=== PATIENT | male | born 2000 | race Caucasian/White ===

== ENCOUNTER 2024-10-04 12:50 | Emergency (ER) | payer OTHER, MEDICAID ==
[~2024-10-04] VITALS: Ht 188 cm; Wt 88.5 kg
[2024-10-04 12:58] VITALS: TEMP 97.2
--- NOTE | 2024-10-04 14:16 | Physician Documentation ---
History of Present Illness ~ Chief Complaint: See Chief Complaint Stated Complaint: DOG SCRATCH MED REQUEST Time Seen by MD: 14:00 Primary Medical Doctor: NONE HPI Patient is seen today with complaints of a small scratch on his right forearm from a stray dog and patient is concerned about rabies. Patient denies any symptoms denies any fevers or chills or infection and has no other concern or complaint at this time. Tetanus within 5 years: Yes Medication Reconciliation Allergies: Coded Allergies: No Known Allergies (Unverified , 10/04/24) Review of Systems Constitutional: Denies: chills, fever, weakness Eyes: Denies: pain, blurred vision ENT: Denies: ear pain, nose pain, throat pain, mouth pain Respiratory: Denies: cough, shortness of breath Cardiovascular: Denies: chest pain, palpitations Gastrointestinal: Denies: abdominal pain, nausea, vomiting Genitourinary: Denies: burning, dysuria Male Genitalia: Denies: penile discharge, testicular pain Neurological: Denies: headache, dizziness Musculoskeletal: Denies: pain, swelling Integumentary: Denies: rash, lesions Allergic/Immunologic: Denies: hives, itching Hematologic/Lymphatic: Denies: no symptoms reported Psychiatric: Denies: depression, anxiety Physical Exam Vital Signs: Temperature: 97.2, Source: Oral, Heart Rate: 82, Respiratory Rate: 16, BP: 120/77, Pulse Oximetry: 100, Weight: 88.500 Oxygen Flow Rate: 0 Physical Exam General: Awake and Alert, no acute distress. HEENT: Conjunctiva pink, Sclera clear, Mucus Membranes moist. Neck: Supple without masses and tenderness. Resp: Unlabored. Lungs clear to auscultation bilaterally. Heart: Regular Rate and rhythm, normal S1 and S2 without murmur, rub or gallop. Musculoskeletal: Patient on exam does have a very small and very superficial scratch on the volar aspect of his right forearm measuring approximately 3 cm in length and does not break through the dermis. In his extremely superficial. No sign of surrounding erythema or induration or secondary infection at this time. Extremities: No cyanosis,clubbing or edema. Skin: Warm and Dry. Progress Results/Orders Results/Orders Vital Signs 10/04/24 12:58 Temp 97.2 Pulse 82 Resp 16 B/P (MAP) 120/77 Pulse Ox 100 O2 Flow Rate 0 Medical Decision Making Findings Patient is seen today with complaints of a small scratch on his right forearm from a stray dog and patient is concerned about rabies. Patient denies any symptoms denies any fevers or chills or infection and has no other concern or complaint at this time. Patient was given reassurance that risk of transmission of rabies from a dog scratch that is extremely superficial such as this is extremely low. Patient will continue to monitor symptoms and will follow up with primary care in 3-5 days or sooner as needed. Return to ED with any worsening, concerning or changing symptoms. Departure Disposition: 01 HOME / SELF CARE / HOMELESS Impression: Primary Impression: Dog scratch Additional Impression: Abrasion forearm Condition: Stable Additional Instructions: Patient was given reassurance that risk of transmission of rabies from a dog scratch that is extremely superficial such as this is extremely low. Patient will continue to monitor symptoms and will follow up with primary care in 3-5 days or sooner as needed. Return to ED with any worsening, concerning or changing symptoms. Referrals: NO PRIMARY CARE PROVIDER (PCP) Signature Scribe Signature: No scribe Attestation: No scribe KEARA AMAYA PAC Oct 04, 2024 14:16
[2024-10-04 14:19] VITALS: BP 134/87; PULSE 67; RESP 16; O2SAT 98
== END 2024-10-04 14:24 | disposition home or self-care (01) ==
LOC: ER 12:51
DX: S50.811A Abrasion of right forearm, initial encounter (principal); W54.0XXA Bitten by dog, initial encounter; Y93.89 Activity, other specified; Y92.89 Other specified places as the place of occurrence of the external cause; Y99.8 Other external cause status
CPT/HCPCS: 99282